=== PATIENT | female | born 1955 | race Hispanic/Latino ===

== ENCOUNTER 2023-11-15 10:21 | Emergency (ER) | payer MEDICARE ==
[~2023-11-15] VITALS: Ht 160 cm; Wt 65.8 kg
[2023-11-15 10:31] VITALS: TEMP 98.6
[2023-11-15] MEDS ORDERED: AMOX TR-K CLV1 EAC2 PO (12:10)
[2023-11-15 12:30] VITALS: PULSE 62; RESP 14; O2SAT 100
== END 2023-11-15 13:04 | disposition home or self-care (01) ==
LOC: ER 10:33
DX: S02.2XXA Fracture of nasal bones, initial encounter for closed fracture (principal); W01.0XXA Fall on same level from slipping, tripping and stumbling without subsequent striking against object, initial encounter; Y93.01 Activity, walking, marching and hiking; Y92.524 Gas station as the place of occurrence of the external cause; E11.9 Type 2 diabetes mellitus without complications
CPT/HCPCS: 70450; 70486; 72125; 99283

== ENCOUNTER 2024-02-15 02:05 | Emergency (ER) | payer MEDICARE ==
[~2024-02-15] VITALS: Ht 160 cm; Wt 53.1 kg
[~2024-02-15 02:05] MED LIST: AMOX TR-K CLV1 EAC2 PO
[2024-02-15 02:18] VITALS: PULSE 71; RESP 16; TEMP 97.8
[2024-02-15] MEDS: KETOROLAC TROMETHAMINE 60 MG/2 ML VIAL IM ONE (02:36)
[2024-02-15] MEDS ORDERED: KETOROLAC TROMETHAMINE 30 MG/ML VIAL ONE (02:36)
[2024-02-15 04:11] VITALS: BP 150/97; PULSE 66; RESP 16; TEMP 98.3; O2SAT 98
== END 2024-02-15 04:12 | disposition home or self-care (01) ==
LOC: ER 02:36
DX: S46.811A Strain of other muscles, fascia and tendons at shoulder and upper arm level, right arm, initial encounter (principal); X58.XXXA Exposure to other specified factors, initial encounter; E11.9 Type 2 diabetes mellitus without complications
CPT/HCPCS: 73030; 99283; J1885

== ENCOUNTER 2024-11-27 11:44 | Emergency (ER) | payer MEDICARE ==
[~2024-11-27] VITALS: Ht 160 cm; Wt 53.1 kg
[2024-11-27 11:59] VITALS: PULSE 88; RESP 17; TEMP 100.3
[2024-11-27 12:38] LABS: EPITHELIAL CELLS,URINE FEW /LPF; LEUKOCYTE ESTERASE ,URINE NEGATIVE (NEGATIVE); PROTEIN,URINE DIPSTICK 2+ (NEGATIVE); URINE UROBILINOGEN 0.2 mg/dL (0.2 - 1); WBC,URINE (MAN) 0-5 /HPF (0-5)
[2024-11-27 13:00] LABS: CORONAVIRUS COVID-19 AG NEGATIVE (NEGATIVE)
[2024-11-27 18:00] VITALS: BP 121/84; PULSE 63; RESP 18; TEMP 98.2; O2SAT 98
== END 2024-11-27 18:01 | disposition home or self-care (01) ==
LOC: ER 11:50
DX: R50.9 Fever, unspecified (principal); B34.9 Viral infection, unspecified; I10 Essential (primary) hypertension; E11.9 Type 2 diabetes mellitus without complications; R53.83 Other fatigue; Z11.52 Encounter for screening for COVID-19
CPT/HCPCS: 81001; 99283